=== PATIENT | male | born 1950 | race Caucasian/White ===

== ENCOUNTER → 2019-03-13 | Outpatient (CLI) | payer OTHER, BC ==
[~2019-03-13] MED LIST: CARDIZEM CD120 MG PO; CIPRO250 M1 PO; COLACE100 MG PO; COZAAR 50 MG TA50 M2 PO; LISINOPRIL20 MG PO; LOPRESSOR 50 MG50 M1 PO; METOPROLOL TAR100 MG PO; OXYBUTYNIN PO; PYRIDIUM200 M1 PO; SORINE 80 MG TA80 M1 PO; TRIAMTERENE-HC1 EAC2 PO; VICODIN 5-5001 EACH; XARELTO20 MG PO
== END ==
LOC: HYPER 06:50
DX: I87.332 Chronic venous hypertension (idiopathic) with ulcer and inflammation of left lower extremity (principal); L97.322 Non-pressure chronic ulcer of left ankle with fat layer exposed; R60.0 Localized edema; F41.9 Anxiety disorder, unspecified; Z85.46 Personal history of malignant neoplasm of prostate

== ENCOUNTER → 2019-10-06 | Outpatient (CLI) | payer OTHER, BC | LOC: HYPER 08:24 | DX: I87.332 Chronic venous hypertension (idiopathic) with ulcer and inflammation of left lower extremity (principal); L97.322 Non-pressure chronic ulcer of left ankle with fat layer exposed; L97.311 Non-pressure chronic ulcer of right ankle limited to breakdown of skin; R60.0 Localized edema; F41.9 Anxiety disorder, unspecified; Z85.46 Personal history of malignant neoplasm of prostate ==

== ENCOUNTER → 2020-02-27 | Outpatient (CLI) | payer OTHER, BC | LOC: HYPER 09:38 | DX: L97.312 Non-pressure chronic ulcer of right ankle with fat layer exposed (principal); L97.322 Non-pressure chronic ulcer of left ankle with fat layer exposed; I87.2 Venous insufficiency (chronic) (peripheral); I10 Essential (primary) hypertension; E66.01 Morbid (severe) obesity due to excess calories; F41.9 Anxiety disorder, unspecified; Z68.27 Body mass index [BMI] 27.0-27.9, adult; Z85.46 Personal history of malignant neoplasm of prostate ==

== ENCOUNTER → 2020-03-28 | Outpatient (CLI) | payer OTHER, BC | LOC: HYPER 08:39 | DX: L97.312 Non-pressure chronic ulcer of right ankle with fat layer exposed (principal); L97.322 Non-pressure chronic ulcer of left ankle with fat layer exposed; E66.01 Morbid (severe) obesity due to excess calories; I87.2 Venous insufficiency (chronic) (peripheral); I10 Essential (primary) hypertension; R60.0 Localized edema; F41.9 Anxiety disorder, unspecified; Z85.46 Personal history of malignant neoplasm of prostate; Z68.27 Body mass index [BMI] 27.0-27.9, adult ==

== ENCOUNTER → 2020-05-07 | Outpatient (CLI) | payer OTHER, BC | LOC: HYPER 06:30 | PROVIDERS: ATTEND Emergency Medicine | DX: I87.312 Chronic venous hypertension (idiopathic) with ulcer of left lower extremity (principal); L97.322 Non-pressure chronic ulcer of left ankle with fat layer exposed; N40.0 Benign prostatic hyperplasia without lower urinary tract symptoms; F41.9 Anxiety disorder, unspecified; Z85.46 Personal history of malignant neoplasm of prostate ==

== ENCOUNTER → 2020-07-17 | Outpatient (CLI) | payer OTHER, BC | LOC: HYPER 09:23 | PROVIDERS: ATTEND Emergency Medicine | DX: L97.322 Non-pressure chronic ulcer of left ankle with fat layer exposed (principal); L97.312 Non-pressure chronic ulcer of right ankle with fat layer exposed; L84 Corns and callosities; I87.2 Venous insufficiency (chronic) (peripheral); I10 Essential (primary) hypertension; E66.01 Morbid (severe) obesity due to excess calories; F41.9 Anxiety disorder, unspecified; Z85.46 Personal history of malignant neoplasm of prostate; Z68.27 Body mass index [BMI] 27.0-27.9, adult ==

== ENCOUNTER → 2020-09-19 | Outpatient (CLI) | payer OTHER, BC | LOC: HYPER 14:14 | PROVIDERS: ATTEND Emergency Medicine | DX: L97.322 Non-pressure chronic ulcer of left ankle with fat layer exposed (principal); L97.312 Non-pressure chronic ulcer of right ankle with fat layer exposed; E66.01 Morbid (severe) obesity due to excess calories; I87.2 Venous insufficiency (chronic) (peripheral); I10 Essential (primary) hypertension; F41.9 Anxiety disorder, unspecified; Z85.46 Personal history of malignant neoplasm of prostate; Z68.27 Body mass index [BMI] 27.0-27.9, adult ==